=== PATIENT | male | born 1955 | race Caucasian/White ===

== ENCOUNTER 2019-10-20 09:07 | Day surgery (SDC) | payer MEDICARE ==
[2019-10-20] VITALS (7 sets, daily range): BP systolic 125–157; BP diastolic 60–93
[~2019-10-20] VITALS: Ht 177.8 cm; Wt 114.0 kg
[2019-10-20] MEDS ORDERED: IBUPROFEN PO (12:08)
[2019-10-20] MEDS ORDERED: MAGN200T PO (12:08)
[2019-10-20] MEDS ORDERED: ACET-1025 PO (12:08)
[2019-10-20] MEDS ORDERED: VITA400C67 PO (12:08)
[2019-10-20] MEDS ORDERED: CALC1WAF PO (12:08)
[2019-10-20] MEDS ORDERED: MV-M1TAB19 PO (12:08)
[2019-10-20] MEDS ORDERED: DOCU100C40 PO (12:08)
[2019-10-20] MEDS ORDERED: NAPR250T4 PO (12:08)
[2019-10-20] MEDS ORDERED: DILT120C51 PO (12:08)
[2019-10-20] MEDS ORDERED: MULT-1085 PO (12:08)
== END 2019-10-20 12:20 | disposition home or self-care (01) ==
LOC: SSTAY O 09:07
PROVIDERS: ATTEND Radiology Vascular & Interventional Radiology
DX: E04.1 Nontoxic single thyroid nodule (principal)
CPT/HCPCS: 60100; 76942; 88305

== ENCOUNTER → 2021-03-23 | Emergency (ER) | payer MEDICARE ==
[~2021-03-23] VITALS: Ht 177.8 cm; Wt 113.0 kg
[~2021-03-23] MED LIST: ACET-1025 PO; CALC1WAF PO; DILT120C51 PO; DOCU100C40 PO; IBUPROFEN PO; MAGN200T PO; MULT-1085 PO; MV-M1TAB19 PO; NAPR-1170 PO; VITA400C67 PO
[2021-03-23 14:28] LABS: BASOPHILS % (AUTO) 0.7 % (0-1); EOSINOPHILS # (AUTO) 0.1 X10'3 (0-0.9); EOSINOPHILS % (AUTO) 1.8 % (0-6); HEMATOCRIT 43.1 % (42.0-52.0); HEMOGLOBIN 14.5 g/dl (14.0-17.9); LYMPHOCYTES # (AUTO) 1.2 X10'3 (1.1-4.8); LYMPHOCYTES % (AUTO) 18.3 % (21-51); MEAN CORPUSCULAR HEMOGLOBIN 29.9 PG (27.0-31.0); MEAN CORPUSCULAR HGB CONC 33.6 g/dL (33.0-36.5); MEAN CORPUSCULAR VOLUME 88.9 FL (78-98); MEAN PLATELET VOLUME 8.1 FL (7.4-10.4); MONOCYTES # (AUTO) 0.6 X10'3 (0-0.9); MONOCYTES % (AUTO) 9.6 % (2-12); NEUTROPHILS # (AUTO) 4.6 X10'3 (1.8-7.7); NEUTROPHILS % (AUTO) 69.6 % (42-75); PLATELET COUNT 228 X10'3 (140-440); RED BLOOD COUNT 4.85 X10'6 (4.70-6.10); RED CELL DISTRIBUTION WIDTH 14.1 % (11.5-14.5); WHITE BLOOD COUNT 6.5 X10'3 (4.5-11.0)
[2021-03-23 14:48] LABS: ALANINE AMINOTRANSFERASE 41 U/L (12-78); ALBUMIN/GLOBULIN RATIO 1.3 (1.1-1.5); ALKALINE PHOSPHATASE 59 IU/L (46-116); ANION GAP 8 (8-16); ASPARTATE AMINO TRANSFERASE 20 U/L (10-37); BLOOD UREA NITROGEN 17 MG/DL (7-18); BUN/CREATININE RATIO 19.8 (5.4-32.0); CHLORIDE 105 MMOL/L (99-107); CREATININE 0.86 MG/DL (0.60-1.10); GLUCOSE 95 MG/DL (70-104); SODIUM 140 MMOL/L (135-145); TOTAL CARBON DIOXIDE 26.7 MMOL/L (24-32); TOTAL PROTEIN 7.1 G/DL (6.4-8.2); eGFR 88 ML/MIN
--- NOTE | 2021-03-23 16:20 | NUR ---
received in bed 3.
--- NOTE | 2021-03-23 16:38 | NUR ---
pt asymptomatic at this time,Jamin VOGEL at bedside.
--- NOTE | 2021-03-23 17:46 | NUR ---
unable to successfully interrogate loop recorder, called [employer]/ [place],to come and interrogate patient.
[2021-03-23 17:52] VITALS: BP 174/74
== END | disposition home or self-care (01) ==
LOC: ER 16:35
DX: R00.2 Palpitations (principal); Z20.822 Contact with and (suspected) exposure to COVID-19; R00.0 Tachycardia, unspecified; Z79.899 Other long term (current) drug therapy
CPT/HCPCS: 36415; 71045; 80053; 83880; 84484; 85025; 87635; 93005; 99285; C9803

== ENCOUNTER 2021-09-15 01:11 | Emergency (ER) | payer MEDICARE ==
[~2021-09-15] VITALS: Ht 177.8 cm; Wt 111.4 kg
[2021-09-15 04:26] LABS: BASOPHILS % (AUTO) 0.5 % (0-1); EOSINOPHILS # (AUTO) 0.1 X10'3 (0-0.9); EOSINOPHILS % (AUTO) 1.6 % (0-6); HEMATOCRIT 39.1 % (42.0-52.0); HEMOGLOBIN 13.2 g/dl (14.0-17.9); LYMPHOCYTES # (AUTO) 0.6 X10'3 (1.1-4.8); LYMPHOCYTES % (AUTO) 14.2 % (21-51); MEAN CORPUSCULAR HEMOGLOBIN 29.9 PG (27.0-31.0); MEAN CORPUSCULAR HGB CONC 33.7 g/dL (33.0-36.5); MEAN CORPUSCULAR VOLUME 88.6 FL (78-98); MEAN PLATELET VOLUME 8.4 FL (7.4-10.4); MONOCYTES # (AUTO) 0.4 X10'3 (0-0.9); MONOCYTES % (AUTO) 9.9 % (2-12); NEUTROPHILS % (AUTO) 73.8 % (42-75); PLATELET COUNT 133 X10'3 (140-440); RED BLOOD COUNT 4.41 X10'6 (4.70-6.10); RED CELL DISTRIBUTION WIDTH 13.7 % (11.5-14.5); WHITE BLOOD COUNT 4.1 X10'3 (4.5-11.0)
[2021-09-15 04:29] LABS: ALANINE AMINOTRANSFERASE 57 U/L (12-78); ALBUMIN 3.5 G/DL (3.4-5.0); ALBUMIN/GLOBULIN RATIO 1.1 (1.1-1.5); ALKALINE PHOSPHATASE 62 IU/L (46-116); ANION GAP 8 (8-16); ASPARTATE AMINO TRANSFERASE 28 U/L (10-37); BILIRUBIN,TOTAL 0.4 MG/DL (0.1-1.0); BLOOD UREA NITROGEN 16 MG/DL (7-18); BUN/CREATININE RATIO 18.2 (5.4-32.0); CALCIUM 8.2 MG/DL (8.5-10.1); CHLORIDE 104 MMOL/L (99-107); CREATININE 0.88 MG/DL (0.60-1.10); GLUCOSE 115 MG/DL (70-104); POTASSIUM 4.2 MMOL/L (3.5-5.1); SODIUM 139 MMOL/L (135-145); TOTAL CARBON DIOXIDE 27.5 MMOL/L (24-32); TOTAL PROTEIN 6.6 G/DL (6.4-8.2); eGFR 86 ML/MIN
[2021-09-15 05:47] VITALS: BP 120/76
== END 2021-09-15 05:40 | disposition home or self-care (01) ==
LOC: ER 01:12
DX: R55 Syncope and collapse (principal); J02.9 Acute pharyngitis, unspecified; R53.83 Other fatigue; R53.1 Weakness; R50.9 Fever, unspecified; Z98.890 Other specified postprocedural states; Z86.16 Personal history of COVID-19; Z79.899 Other long term (current) drug therapy
CPT/HCPCS: 36415; 71045; 80053; 83880; 84484; 85025; 93005; 99285

== ENCOUNTER 2023-10-11 09:28 | Emergency (ER) | payer MEDICARE ==
[~2023-10-11] VITALS: Ht 177.8 cm; Wt 115.8 kg
[2023-10-11 10:20] VITALS: BP 145/77; PULSE 65; RESP 18; TEMP 98.8; O2SAT 96
[2023-10-11] MEDS ORDERED: AMOX-580 PO (11:15)
== END 2023-10-11 11:26 | disposition home or self-care (01) ==
LOC: ER 09:28
DX: J01.90 Acute sinusitis, unspecified (principal); Z88.8 Allergy status to other drugs, medicaments and biological substances; Z88.6 Allergy status to analgesic agent; Z79.899 Other long term (current) drug therapy
CPT/HCPCS: 71046; 99283

== ENCOUNTER 2024-12-01 21:40 | Emergency (ER) | payer MEDICARE ==
[~2024-12-01] VITALS: Ht 172.7 cm; Wt 119.0 kg
[~2024-12-01 21:40] MED LIST changes: -ACET-1025 PO; -CALC1WAF PO; +DILT-35 PO; -DILT120C51 PO; -DOCU100C40 PO; +FLEC100T PO; +FLUT16SP26; +FOLI1TAB27 PO; +GABA300T28 PO; -IBUPROFEN PO; -MAGN200T PO; +MAGN400C PO; +METH2.5T55 PO; -MULT-1085 PO; -MV-M1TAB19 PO; -NAPR-1170 PO; +TADA5TAB2 PO; -VITA400C67 PO; +ZINC220T3 PO
[2024-12-01 21:57] VITALS: TEMP 97.8
[2024-12-01 22:26] LABS: ANION GAP 7 (8-16); BASOPHILS % (AUTO) 0.6 % (0-1); CHLORIDE 105 MMOL/L (99-107); EOSINOPHILS # (AUTO) 0.3 X10'3 (0-0.9); EOSINOPHILS % (AUTO) 4.8 % (0-6); HEMATOCRIT 40.8 % (42.0-52.0); HEMOGLOBIN 13.8 g/dl (14.0-17.9); LYMPHOCYTES # (AUTO) 1.4 X10'3 (1.1-4.8); LYMPHOCYTES % (AUTO) 23.4 % (21-51); MEAN CORPUSCULAR HEMOGLOBIN 30.8 PG (27.0-31.0); MEAN CORPUSCULAR HGB CONC 33.9 g/dL (33.0-36.5); MEAN PLATELET VOLUME 7.6 FL (7.4-10.4); MONOCYTES # (AUTO) 0.6 X10'3 (0-0.9); MONOCYTES % (AUTO) 10.9 % (2-12); NEUTROPHILS # (AUTO) 3.5 X10'3 (1.8-7.7); NEUTROPHILS % (AUTO) 60.3 % (42-75); PLATELET COUNT 230 X10'3 (140-440); POTASSIUM 4.2 MMOL/L (3.5-5.1); RED BLOOD COUNT 4.48 X10'6 (4.70-6.10); RED CELL DISTRIBUTION WIDTH 14.1 % (11.5-14.5); SODIUM 137 MMOL/L (135-145); TOTAL CARBON DIOXIDE 24.7 MMOL/L (24-32); WHITE BLOOD COUNT 5.8 X10'3 (4.5-11.0)
[2024-12-01] MEDS: aspirin 81mg tab.chew PO ONE (22:43)
[2024-12-01] MEDS: morphine 4 MG/ML inj SYRINge IV ONE (22:44)
[2024-12-01] MEDS: ondansetron/PF 4mg/2ml inj IV ONE (22:44)
[2024-12-01 22:59] LABS: ALANINE AMINOTRANSFERASE 38 U/L (12-78); ALBUMIN 3.5 G/DL (3.4-5.0); ALBUMIN/GLOBULIN RATIO 1.1 (1.1-1.5); ALKALINE PHOSPHATASE 80 IU/L (46-116); ASPARTATE AMINO TRANSFERASE 19 U/L (10-37); BILIRUBIN,TOTAL 0.7 MG/DL (0.1-1.0); BLOOD UREA NITROGEN 18 MG/DL (7-18); CALCIUM 8.2 MG/DL (8.5-10.1); GLUCOSE 106 MG/DL (70-104); MAGNESIUM 1.9 MG/DL (1.5-2.4); PRO BRAIN NATRIURETIC PEPTIDE < 30 PG/ML (0-125); TOTAL PROTEIN 6.7 G/DL (6.4-8.2); eCRCL 73 ML/MIN; eGFR 83 ML/MIN
[2024-12-01] MEDS ORDERED: iohexol 350MG/ML 100ml bottle IV ONE (23:17)
[2024-12-02] MEDS ORDERED: HYDR-3965 PO (02:32)
[2024-12-02 02:50] VITALS: BP 119/62; PULSE 62; RESP 15; O2SAT 95
[2024-12-02] MEDS: ketorolac trometh 15mg/ml vial 15 MG/ML ML IV ONE (02:51)
== END 2024-12-02 03:07 | disposition home or self-care (01) ==
LOC: ER 21:41
DX: J90 Pleural effusion, not elsewhere classified (principal)
CPT/HCPCS: 36415; 71045; 71275; 80053; 83735; 83880; 84484; 85025; 93005; 96374; 96375; 99285; J1885; J2270; J2405; Q9967